=== PATIENT | female | born 1970 | race Caucasian/White ===

== ENCOUNTER → 2018-11-12 11:41 | Outpatient (CLI) | payer OTHER, SELFPAY ==
--- NOTE | 2018-11-12 | DI.MG.S_ITS ---
BILATERAL DIGITAL SCREENING MAMMOGRAM 3D/2D WITH CAD: 11/12/2018 CLINICAL: Routine screening. Comparison is made to exams dated: 02/05/2017 mammogram, 07/10/2014 mammogram, and 11/07/2011 mammogram - [facility]. The tissue of both breasts is extremely dense, which lowers the sensitivity of mammography. Current study was also evaluated with a Computer Aided Detection (CAD) system. There is a mole marker on the left breast. No significant masses, calcifications, or other findings are seen in either breast. There has been no significant interval change. IMPRESSION: NEGATIVE There is no mammographic evidence of malignancy. A 1 year screening mammogram is recommended. This exam was interpreted at Station ID: [id number]. NOTE: For mammograms, a report in lay terms will be sent to the patient. Approximately 15% of breast malignancies will not be visualized mammographically. In the management of a palpable breast mass, a negative mammogram must not discourage biopsy of a clinically suspicious lesion. Electronically Signed By: Matthew batista/kesnia:11/12/2018 17:17:56 copy to: NATALI SALGUERO letter sent: Normal Exam ACR BI-RADS Category 1: Negative [id number]
== END ==
PROVIDERS: PCP Internal Medicine; Visit Provider Internal Medicine
DX: Z12.31 Encounter for screening mammogram for malignant neoplasm of breast (principal)
CPT/HCPCS: 77063; 77067

== ENCOUNTER 2019-01-19 07:47 | Day surgery (SDC) | payer OTHER, SELFPAY ==
--- NOTE | 2019-01-19 | PATH_ITS ---
[facility] Accession Number: [id number] . 01 Material submitted: . PART A: CECAL POLYP PART B: ASCENDING COLON POLYP . 02 Diagnosis: A. Cecum, Polyp: Tubular adenoma. . B. Ascending Colon, Polyp: Tubulovillous adenoma, fragmented. Negative for high-grade dysplasia or malignancy. MRV/01/20/2019 . 02 Electronically signed: . Stefan Ignacio MD, PhD, Pathologist NPI- [id number] . 01 Gross description: . Received two formalin-filled containers, both labeled with the patient's name: . A. In a container labeled cecal polyp, the specimen consists of a 0.1 cm portion of tissue, entirely submitted in cassette A. B. In a container labeled ascending colon polyp, are multiple 0.1-0.5 cm portions of tissue, which are filtered, wrapped, and entirely submitted in cassette B. ([id number]) /FRR . 02 Pathologist provided ICD-10: D12.0, D12.2 . 02 CPT . 998415, 153397 Performed at: 01 [facility] [address] [id number] MD Devendra Ng MD Phone: [phone] Performed at: 02 [facility] [address] [place], [place] [id number] MD Raquel Harmon MD Phone: [phone]
--- NOTE | 2019-01-19 07:47 | PM.HP.1 ---
History of Present Illness Date Patient Seen: 01/19/19 Chief complaint: [id number] SCREENING COLONOSCOPY Narrative: 48-year-old female who is is here for colon cancer screening. There is a family history of colon polyps in her father. Otherwise the patient has no active GI issues Meds Home Medications Medication Instructions Recorded Confirmed Type NORETH/ETHIN/FE 11/21 - tab PO QDAY #0 12/09/12 01/19/19 History (Loestrin Fe - Tablet) trazodone 100 mg PO BEDTIME 01/19/19 01/19/19 History Allergies Allergy/AdvReac Type Severity Reaction Status Date / Time amoxicillin Allergy Mild Rash Verified 01/19/19 07:53 Exam Narrative Exam Narrative: General: Patient is well developed, not in apparent distress Cardiovascular: Regular rate and rhythm, no murmurs, rubs, or gallops; no evidence of edema; no palpable abdominal aortic aneurysm Gastrointestinal: Normoactive bowel sounds, soft, nontender, nondistended, no rebound tenderness, no hepatosplenomegaly, no evidence of hernia Assessment & Plan Assessment & Plan narrative: 48-year-old female with family history of colon polyps who is here for colon cancer screening by means of colonoscopy Regarding the procedure(s), the risks and potential complications, benefits, and alternatives (including not doing the procedure) were discussed with the patient. The risks include but are not limited to bleeding, splenic injury, infection, perforation which may require surgical intervention, missed lesions, and adverse reactions to sedative medicines. After a question and answer period, the patient agreed to proceed with the procedure(s) and gives informed consent.
[2019-01-19 08:08] VITALS: BP 117/75; PULSE 75; RESP 16; TEMP 36.8; O2SAT 98; BMI 23.9
[2019-01-19] MEDS: SODIUM CHLORIDE 0.9% 1,000 ML 70 ML IV (08:30)
[2019-01-19] MEDS: fentaNYL 250 MCG/5 ML INJ IV (09:00)
[2019-01-19] MEDS: MIDAZOLAM 5 MG/5 ML VIAL IV (09:00)
--- NOTE | 2019-01-19 09:06 | PM.OP.ENDO ---
Operative Date/Time/Diagnoses Date of procedure: 01/19/19 Procedure Notes Procedure in detail: Surgeon: Franklin Samano MD Procedure: Colonoscopy with polypectomy and tattoo Preoperative diagnosis: Colon cancer screening, family history of colon polyps Postoperative diagnosis: Cecal polyp, ascending colon polyp status post polypectomy with tattoo of ascending colon polypectomy site, grade 1 internal hemorrhoids Medications: Conscious sedation using 6 mg IV of Midazolam and 100 mcg IV of Fentanyl Preanesthesia Assessment An H and P was performed/updated and the Px?s ASA class is 1. The procedure was discussed in detail with the patient. The potential risks and complications including infection, bleeding, missed lesions, perforation, need for surgery in case of perforation, prolonged hospital stay, and were explained. A brief question and answer period was allotted and once all questions were answered, informed consent was obtained. The patient was brought back to the procedure room and placed on standard monitoring. The patient?s vital signs were monitored continuously throughout the entire procedure. Prior to starting, a timeout was performed to confirm the patient?s identity, allergies, medications, and procedure. Procedure in detail The patient was placed in left lateral decubitus position and once adequate sedation was obtained a JEANETTE was performed. The digital rectal examination did not reveal any palpable lesions. The tip of the colonoscope was placed in the anal canal and advanced without difficulty all the way to the cecum which was identified by the appendiceal orifice and the ileocecal valve. Careful examination of all carrion of the colon was performed with irrigation of any residual stool. In the cecum, there was note of a 2 mm sessile polyp which was removed by means of cold Jumbo forceps. Resection and retrieval were complete with minimal bleeding. In the ascending colon, there was note of a 10 mm semi pedunculated polyp which was removed by means of hot snare. Resection and retrieval were complete with no bleeding. 1 cc of spot ink was injected adjacent to the polypectomy site. Retroflexion was performed in the rectum which revealed grade 1 internal hemorrhoids The patient tolerated the procedure well and will be brought back to the recovery area to be discharged once criteria are met. The prep was judged to be good and adequate to identify polyps less than 5 mm. The withdrawal time was 13 min. The total physician intraservice time was 20 min. Complications There were no complications and estimated blood loss was minimal. Recommendations: Resume previous diet Continue outPx medications Follow up pathology results Repeat colonoscopy in 3 years for surveillance. This may change depending on the pathology results If you have any trouble with your hemorrhoids, feel free to call our office to make an appointment so you can be evaluated to see if you would be a good candidate for hemorrhoid banding An emergency contact number was given to the patient for any complications related to the procedure
[2019-01-19 09:32] VITALS: BP 109/66; PULSE 63; RESP 10; TEMP 36.3; O2SAT 99
--- NOTE | 2019-01-19 09:33 | PM.DS.1 ---
History of Present Illness Chief complaint: [id number] SCREENING COLONOSCOPY Narrative: 48-year-old female who is is here for colon cancer screening. There is a family history of colon polyps in her father. Otherwise the patient has no active GI issues Discharge Providers Discharge Date: 01/19/19 Primary care physician: Jh Brenner MD Discharge provider: Franklin Samano MD Exam Vital Signs (past 8 hours): - 01/19/19 08:08 Temperature 98.2 F Pulse Rate 75 Respiratory Rate 16 Blood Pressure 117/75 Pulse Oximetry 98 Oxygen Delivery Method Room Air Narrative Exam Narrative: General: Patient is well developed, not in apparent distress Cardiovascular: Regular rate and rhythm, no murmurs, rubs, or gallops; no evidence of edema; no palpable abdominal aortic aneurysm Gastrointestinal: Normoactive bowel sounds, soft, nontender, nondistended, no rebound tenderness, no hepatosplenomegaly, no evidence of hernia Discharge Plan Discharge Plan Patient Disposition: Home Discharge Med Rec/Prescriptions Prescriptions: Continued NORETH/ETHIN/FE /20 - (Loestrin Fe 1-20 Tablet) 1 tab PO QDAY Qty: 0 RF: 0 trazodone 50 mg Tablet 100 mg PO BEDTIME RF: 0 Follow up/Referrals: Jh Brenner MD [Primary Care Provider] - Discharge Orders: Discharge (Order); Ordered 01/19/19 Ordered By: Franklin Samano Provider Discharge Instructions Diet: Diet as Tolerated Visit Report/Discharge Packet Stand Alone Forms: Colonoscopy Result: [facility] Discharge Data Primary Care Provider: Jh Brenner V Attending Provider: Franklin Samano
[2019-01-19 09:37] VITALS: BP 104/63; PULSE 71; RESP 20; O2SAT 99
[2019-01-19 09:42] VITALS: BP 110/68; PULSE 69; RESP 19; O2SAT 100
[2019-01-19 09:51] VITALS: BP 115/66; PULSE 65; RESP 18; TEMP 36.6; O2SAT 100
== END 2019-01-19 10:02 | disposition home or self-care (01) ==
PROVIDERS: PCP Internal Medicine; Visit Provider Internal Medicine Gastroenterology
PROC: 0DJD8ZZ Inspection of Lower Intestinal Tract, Via Natural or Artificial Opening Endoscopic (ICD-10-PCS; CPT 45378; principal; 2019-01-19 09:00)
DX: Z12.11 Encounter for screening for malignant neoplasm of colon (principal); Z80.0 Family history of malignant neoplasm of digestive organs; D12.0 Benign neoplasm of cecum; D12.2 Benign neoplasm of ascending colon; K64.0 First degree hemorrhoids
CPT/HCPCS: 45381; 45385; 45380; J2250; J3010

== ENCOUNTER → 2019-10-19 18:27 | Outpatient (ROUT) | payer OTHER, SELFPAY ==
[2019-10-19 19:08] LABS: Cholesterol 212 mg/dL (140-199); Glucose 94 mg/dL (70-100); HDL Cholesterol 50 mg/dL (40-60); LDL Cholesterol Calculated 104 mg/dL (<100); Triglycerides 290 mg/dL (35-150)
== END ==
PROVIDERS: PCP Internal Medicine; Visit Provider Internal Medicine
DX: Z00.00 Encounter for general adult medical examination without abnormal findings (principal)
CPT/HCPCS: 80061; 82947

== ENCOUNTER 2023-05-23 09:02 | Emergency (ER) | payer OTHER, SELFPAY ==
[2023-05-23 09:09] VITALS: BP 157/102; PULSE 65; RESP 20; TEMP 36.6; O2SAT 100; BMI 25.0
[2023-05-23 09:15] VITALS: PULSE 62; O2SAT 100
[2023-05-23 09:21] VITALS: BP 176/82; PULSE 60; O2SAT 100
[2023-05-23] MEDS: MORPHINE 2 MG/ML INJ IV (09:28)
--- NOTE | 2023-05-23 09:28 | DI.CT.S_ITS ---
PROCEDURE: CT KIDNEY URETER BLADDER (KUB) INDICATIONS: right sided pain hx stones TECHNIQUE: Axial sections were acquired from the lung bases to the pubic symphysis. Coronal and sagittal reformats were performed. For radiation dose reduction, the following was used: automated exposure control, adjustment of mA and/or kV according to patient size. COMPARISON: [facility], CT, KIDNEY/ URETER/BLADDER, 01/21/2018, 15:03. FINDINGS: Image quality: Excellent. Lung bases: Lung bases are clear. Heart: No significant findings. URINARY: Right Kidney/ureter: There is an obstructing 4 mm distal right ureteral stone visualized just proximal to the right ureterovesicular junction. There is mild right hydroureteronephrosis. No significant perinephric or periureteral stranding. Left Kidney: No stones or hydronephrosis. Left Ureter: No hydroureter. Bladder: Normal wall thickness. No stones. ABDOMEN: Liver: Unremarkable. Gallbladder: Unremarkable Biliary ducts: Unremarkable. Pancreas: Unremarkable. Spleen: No splenomegaly Adrenal Glands: Unremarkable. Stomach and Bowel: Stomach, small bowel loops, and colon are unremarkable. Normal appendix Peritoneum: No abnormal intraperitoneal fluid. No free air. Ventral Wall: There is a fat-containing umbilical hernia without acute inflammation. Abdominal Nodes: No enlarged retroperitoneal or mesenteric lymph nodes. Vessels: Aorta and inferior vena cava are normal in size. PELVIS: Pelvic Organs: Unremarkable. Pelvic Nodes: Unremarkable. Miscellaneous: No inguinal hernias are seen. Bones: Visualized osseous structures appear intact without acute fracture or focal destructive lesion. No acute compression fractures of the imaged spine. IMPRESSION: Obstructing 4 mm distal right ureteral stone with associated mild right hydroureteronephrosis. Normal appendix. Dictated by: Lucio Delarosa M.D. on 05/23/2023 at 9:24 Approved by: Lucio Delarosa M.D. on 05/23/2023 at 9:28
[2023-05-23 09:30] VITALS: BP 174/92; PULSE 61; O2SAT 100
[2023-05-23 09:55] LABS: Add Manual Diff / Slide Review NO; Basophils Absolute Auto 100 /uL (0-100); Basophils Percent Auto 0.5 % (0-2); Eosinophils Absolute Auto 0 /uL (0-450); Eosinophils Percent Auto 0.2 % (2-4); Hematocrit 39.6 % (36-46); Hemoglobin 13.6 g/dL (12.0-16.0); Lymphocytes Absolute Auto 1500 /uL (1100-4500); Lymphocytes Percent Auto 12.7 % (25-40); Mean Corpuscular HGB Conc 34.5 % (30-36); Mean Corpuscular Hemoglobin 30.1 PG (26-34); Mean Corpuscular Volume 87.2 fL (80-100); Monocytes Absolute Auto 700 /uL (0-900); Monocytes Percent Auto 5.8 % (3-14); Neutrophils Absolute Auto 9500 /uL (1500-7000); Neutrophils Percent Auto 80.8 % (50-75); Platelet Count 289 X10^3/uL (150-400); Red Blood Cell Count 4.54 X10^6/uL (4.0-5.2); Red Cell Distribution Width 13.2 % (11.6-14.8); White Blood Cell Count 11.8 X10^3/uL (4.5-11.0)
--- NOTE | 2023-05-23 09:59 | ED_ITS ---
HPI - Female Genitourinary General Chief complaint: Urogenital-Female Stated complaint: Kidney Stone Time Seen by Provider: 05/23/23 09:28 Source: patient Mode of arrival: Ambulatory History of Present Illness HPI Narrative: Patient is a 52-year-old female history of kidney stones presenting today with sudden onset of right flank pain. She reports that she passed a kidney stone about 2 weeks ago but started having severe pain today. She is never had pain like this is right flank radiating to her groin. She would difficulty urinatin g. She has some nausea. No fever or chills. She took ibuprofen prior to arrival it has not helped yet. She is been given morphine and Dilaudid prior to my examination is much more comfortable. Related Data Home Medications Medication Instructions Recorded Confirmed NORETH/ETHIN/FE 11/21 - 1 tab PO QDAY ##0 12/09/12 01/19/19 (Loestrin Fe 1-20 Tablet) trazodone 50 mg tablet 100 mg PO BEDTIME 01/19/19 01/19/19 Previous Rx's Medication Instructions Recorded hydrocodone 5 mg-acetaminophen 325 1 tab PO Q6H PRN pain #10 tabs 05/23/23 mg tablet ondansetron 4 mg disintegrating 4 mg PO Q8H PRN nausea and 05/23/23 tablet vomiting #10 tabs Allergies Allergy/AdvReac Type Severity Reaction Status Date / Time amoxicillin Allergy Mild Rash Verified 01/19/19 07:53 Review of Systems Review of Systems ROS Unobtainable: All systems reviewed & are unremarkable except as noted in HPI and below Patient History alcohol intake frequency: a few times a week Substance Use Type: does not use Exam Initial Vital Signs Initial Vital Signs: Vital Signs Temperature 97.8 F 05/23/23 09:09 Pulse Rate 65 05/23/23 09:09 Respiratory Rate 20 05/23/23 09:09 Blood Pressure 157/102 H 05/23/23 09:09 Pulse Oximetry 100 05/23/23 09:09 Oxygen Delivery Method Room Air 05/23/23 09:09 GENERAL: Alert pleasant well-appearing 52-year-old female and in no acute distress. HEENT: Head atraumatic,EOMI, pupils reactive, face symmetric, moist mucous membranes CARDIOVASCULAR: Regular rate and rhythm without murmurs, rubs or gallops. RESPIRATORY: Breath sounds equal bilaterally, no wheezes rales or rhonchi. ABDOMEN: Soft, minimal right lower quadrant pain no guarding no rebound negative Allen's sign : Mild right CVA tenderness EXTREMITIES: Normal range of motion, no clubbing or edema. Neurovascularly intact NEUROLOGICAL: Alert and oriented x4. SKIN: Warm, dry, no laceration, no petechiae, no rashes or lesions. Course Orders Ordered: ED Orders 05/23/23 09:25 Urinalysis and Microscopic Stat 05/23/23 09:28 CT kidney ureter bladder (KUB) Stat 05/23/23 09:40 CBC Auto Diff [Complete Blood Count AUTO DIFF] Stat CMP [Comprehensive Metabolic Panel] Stat Discontinued Medications Hydromorphone HCl (Hydromorphone 0.5 Mg Inj) 0.5 mg IV NOW ONE Stop: 05/23/23 10:02 Last Admin: 05/23/23 10:05 Dose: 0.5 mg Documented By: BRENDA Morphine Sulfate (Morphine 2 Mg/Ml Inj) 2 mg IV NOW ONE Stop: 05/23/23 09:22 Last Admin: 05/23/23 09:28 Dose: 2 mg Documented By: BRENDA Ondansetron HCl (Ondansetron 4 Mg/2 Ml Inj) 4 mg IV NOW ONE Stop: 05/23/23 09:30 Last Admin: 05/23/23 10:05 Dose: 4 mg Documented By: BRENDA Vital Signs Vital signs: Vital Signs - 8 hr 05/23/23 09:09 05/23/23 09:15 05/23/23 09:21 Temperature 97.8 F Pulse Rate 65 62 60 Respiratory Rate 20 Blood Pressure 157/102 H Pulse Oximetry 100 100 100 Oxygen Delivery Method Room Air 05/23/23 09:21 05/23/23 09:30 05/23/23 09:30 Temperature Pulse Rate 61 Respiratory Rate Blood Pressure 176/82 H 174/92 H Pulse Oximetry 100 Oxygen Delivery Method 05/23/23 10:34 05/23/23 11:49 Temperature Pulse Rate 77 77 Respiratory Rate 18 18 Blood Pressure Pulse Oximetry 100 99 Oxygen Delivery Method Room Air MDM - Female Genitourinary Lab Data 05/23/23 09:40 05/23/23 09:40 Labs: Lab Results 05/23/23 05/23/23 05/23/23 Range/Units 09:25 09:40 09:40 WBC 11.8 H (4.5-11.0) X10^3/uL RBC 4.54 (4.0-5.2) X10^6/uL Hgb 13.6 (12.0-16.0) g/dL Hct 39.6 (36-46) % MCV 87.2 (80-100) fL MCH 30.1 (26-34) PG MCHC 34.5 (30-36) % RDW 13.2 (11.6-14.8) % Plt Count 289 (150-400) X10^3/uL Neut % (Auto) 80.8 H (50-75) % Lymph % (Auto) 12.7 L (25-40) % [place] % (Auto) 5.8 (3-14) % Eos % (Auto) 0.2 L (2-4) % Baso % (Auto) 0.5 (0-2) % Neut # (Auto) 9500 H (6614-8009) /uL Lymph # (Auto) 1500 (4566-3190) /uL [place] # (Auto) 700 (0-900) /uL Eos # (Auto) 0 (0-450) /uL Baso # (Auto) 100 (0-100) /uL Sodium 133 L (137-145) mmol/L Potassium 4.1 (3.4-5.1) mmol/L Chloride 99 (98-107) mmol/L Carbon Dioxide 28 (22-32) mmol/L BUN 16 (7-17) mg/dL Creatinine 0.66 (0.52-1.04) mg/dL Estimated GFR > 60 (>60) mL/min BUN/Creatinine Ratio 24.2 H (6-22) Glucose 107 H (70-100) mg/dL Calcium 9.1 (8.4-10.2) mg/dL Total Bilirubin 0.5 (0.2-1.3) mg/dL AST 25 (14-36) IU/L ALT 21 (<35) IU/L Alkaline Phosphatase 90 (38-126) U/L Total Protein 6.8 (6.3-8.2) g/dL Albumin 4.2 (3.5-5.0) g/dL Globulin 2.6 (1.7-4.1) g/dL Albumin/Globulin Ratio 1.6 (1.0-2.8) Urine Color Yellow Urine Appearance Cloudy Urine pH 7.5 (4.5-8.0) Ur Specific [place] 1.020 (1.000-1.035) Urine Protein Negative (Negative) Urine Glucose (UA) Negative (Negative) g/dL Urine Ketones Negative (NEGATIVE) Urine Occult Blood 1+ H (Negative) Urine Nitrate Negative (Negative) Urine Bilirubin Negative (NEGATIVE) Urine Urobilinogen 0.2 (0.2) E.U./dL Ur Leukocyte Esterase Negative (NEGATIVE) Urine RBC 1-5/hpf (0-5/HPF) Urine WBC 0-1/hpf (0-5/HPF) Ur Squamous Epith Cells 0-1 /hpf (0-5/HPF) Amorphous Sediment 3+ Urine Bacteria Occasional (0-1) (None) Ur Culture Indicated? Cult not indicated Urine Dip Bedside Urine Glucose Negative Bedside Urine Bilirubin - Negative Bedside Urine Ketone - Negative Urine Specific [place] 1.010 Bedside Urine Occult Blood ++ Bedside Urine pH 7.5 Bedside Urine Protein - Negative Bedside Urine Urobilinogen - Negative Bedside Urine Nitrite - Negative Bedside Urine Leukocytes - Negative Esterase Imaging Data CT scan - abdomen/pelvis: Radiologist's Impression: PROCEDURE:? CT KIDNEY URETER BLADDER (KUB) ? INDICATIONS:? right sided pain hx stones ? TECHNIQUE:? Axial sections were acquired from the lung bases to the pubic symphysis.? Coronal and sagittal reformats were performed.? For radiation dose reduction, the following was used: ?automated exposure control, adjustment of mA and/or kV according to patient size.? ? COMPARISON:? [facility], CT, KIDNEY/ URETER/BLADDER, 01/21/2018, 15:03. ? FINDINGS:? Image quality:? Excellent.? ? Lung bases:? Lung bases are clear. Heart:? No significant findings. ? URINARY: Right Kidney/ureter:? There is an obstructing 4 mm distal right ureteral stone visualized just proximal to the right ureterovesicular junction.? There is mild right hydroureteronephrosis.? No significant perinephric or periureteral stranding. ? Left Kidney: ? No stones or hydronephrosis. Left Ureter:? No hydroureter.? ? Bladder:? Normal wall thickness. No stones. ? ? ? ABDOMEN: Liver:? Unremarkable.? ? Gallbladder:? Unremarkable? ? Biliary ducts:? Unremarkable.? ? Pancreas:? Unremarkable.? ? Spleen:? No splenomegaly Adrenal Glands:? Unremarkable.? ? ? Stomach and Bowel:? Stomach, small bowel loops, and colon are unremarkable.? No rmal appendix Peritoneum:? No abnormal intraperitoneal fluid.? No free air.? ? Ventral Wall: There is a fat-containing umbilical hernia without acute inflammation. Abdominal Nodes:? No enlarged retroperitoneal or mesenteric lymph nodes.? Vessels:? Aorta and inferior vena cava are normal in size.? ? PELVIS: Pelvic Organs:? Unremarkable.? ? Pelvic Nodes: Unremarkable. Miscellaneous: No inguinal hernias are seen. ? ? ? Bones: Visualized osseous structures appear intact without acute fracture or foc al destructive lesion. No acute compression fractures of the imaged spine. ? IMPRESSION:? ? Obstructing 4 mm distal right ureteral stone with associated mild right hydroureteronephrosis. ? Normal appendix. ? Dictated by: Lucio Delarosa M.D. on 05/23/2023 at 9:24 ? ? Approved by: Lucio Delarosa M.D. on 05/23/2023 at 9:28 ? MDM Narrative Medical decision making narrative: Patient 52-year-old female presents today with right flank pain,. She is history of kidney stone presenting today similar to kidney stone. She is confirmed by CT to have a 4 mm stone with hydronephrosis. No evidence of SKYLER I or UTI. Pain is much better controlled after Dilaudid rather than morphine. Discussion with her about how she should have referral to Urology she is had 2 stones in the last 2 weeks. No further stones are seen today on CT. Discharge Plan Departure Patient Disposition: Home Clinical Impression: Kidney stones Instructions: DI for Kidney Stones Activity Restrictions/Additional Instructions: *You have been diagnosed with right-sided kidney stone *What to do: At this time continue to hydrate. I suspect that you pass a stone within the next 72 hours. *Continue to take medications as directed Motrin 600 mg every 6 hours if needed for [id number] pain [place] 1 tablet every 6 hours if needed for severe Zofran 4 mg every 8 hours if needed for nausea vomiting *Follow up with your primary care provider in 2-3 days or call [phone] Call [place] or your PCP for referral to Urology *Return to ER if you should have increasing pain, fever, persistent vomiting or any new, worsening or concerning symptoms CONTROLLED SUBSTANCE DISCHARGE (Narcotoic/benzodiazepine/Flexeril/Phenergan) 1. You have been prescribed narcotic medications, it does have acetaminophen/Tylenol/paracetamol in it, DO NOT TAKE MORE THAN 4,00mg in 24 hours of Tylenol. TRAMADOL DOES NOT CONTAIN TYLENOL 2. Please understand that we cannot provide further refills of narcotics, benzodiazepines or controlled substances through the ED and her pain management will need to be through your provider. 3. While on these medications you cannot drive or operate heavy machinery. 4. You cannot sign legal documents or perform any duties such as this. 5. As long as you're taking opiate pain medications he should also be taking a stool softener such as Colace, Dulcolax, MiraLAX or prune juice, to help avoid constipation. Prescriptions: New hydrocodone-acetaminophen 5-325 mg tablet 1 tab PO Q6H PRN (Reason: pain) Qty: 10 0RF ondansetron 4 mg tablet,disintegrating 4 mg PO Q8H PRN (Reason: nausea and vomiting) Qty: 10 0RF No Action NORETH/ETHIN/FE 1/20 - (Loestrin Fe 1-20 Tablet) 1 tab PO QDAY Qty: 0 trazodone 50 mg Tablet 100 mg PO BEDTIME Referrals: Lauren Eng MD [Primary Care Provider] - Matteo Harry MD [Physician] - Stand Alone Forms: Patient Portal/API
[2023-05-23] MEDS: HYDROMORPHONE 0.5 MG INJ IV (10:05)
[2023-05-23] MEDS: ONDANSETRON 4 MG/2 ML INJ IV (10:05)
[2023-05-23 10:08] LABS: Alanine Aminotransferase 21 IU/L (<35); Albumin 4.2 g/dL (3.5-5.0); Albumin Globulin Ratio 1.6 (1.0-2.8); Alkaline Phosphatase 90 U/L (38-126); Aspartate Aminotransferase 25 IU/L (14-36); BUN Creatinine Ratio 24.2 (6-22); Bilirubin Total 0.5 mg/dL (0.2-1.3); Blood Urea Nitrogen 16 mg/dL (7-17); Calcium 9.1 mg/dL (8.4-10.2); Carbon Dioxide 28 mmol/L (22-32); Chloride 99 mmol/L (98-107); Estimated Glomerular Filt Rate > 60 mL/min (>60); Globulin 2.6 g/dL (1.7-4.1); Glucose 107 mg/dL (70-100); HEMOLYSIS < 15 (0-50); Potassium 4.1 mmol/L (3.4-5.1); Sodium 133 mmol/L (137-145); Total Protein 6.8 g/dL (6.3-8.2)
[2023-05-23 10:34] VITALS: PULSE 77; RESP 18; O2SAT 100
[2023-05-23 10:58] LABS: Appearance Urine UA CLOUDY; Bilirubin Urine UA NEGATIVE (NEGATIVE); Color Urine UA YELLOW; Glucose Urine UA NEGATIVE (Negative); Ketones Urine UA NEGATIVE (NEGATIVE); Leukocyte Esterase Urine UA NEGATIVE (NEGATIVE); Nitrite Urine UA NEGATIVE (Negative); Occult Blood Urine UA 1+ (Negative); Protein Urine UA NEGATIVE (Negative); Urobilinogen Urine UA 0.2 E.U./dL (0.2)
[2023-05-23 11:06] LABS: Bacteria Urine Occasional (0-1); RBC Urine 1-5/HPF (0-5/HPF); Squamous Epithelial Cell Urine 0-1 /HPF (0-5/HPF); WBC Urine 0-1/HPF (0-5/HPF); pH Urine UA 7.5 (4.5-8.0)
[2023-05-23 11:07] LABS: Amorphous Sediment Urine 3+; Culture Indicated Urine Cult Not Indicated
[2023-05-23 11:49] VITALS: PULSE 77; RESP 18; O2SAT 99
== END 2023-05-23 11:59 | disposition home or self-care (01) ==
PROVIDERS: Emergency Provider Emergency Medicine; PCP Family Medicine
DX: N20.0 Calculus of kidney (principal); R30.0 Dysuria; Z87.442 Personal history of urinary calculi
CPT/HCPCS: 51798; 74176; 80053; 81001; 81003; 85025; 96374; 96375; 99283; 99284; J1170; J2270; J2405

== ENCOUNTER 2023-06-02 06:58 | Day surgery (SDC) | payer OTHER, SELFPAY ==
[2023-06-02 07:10] VITALS: BP 130/80; PULSE 78; RESP 16; TEMP 35.7; O2SAT 98; BMI 23.3
[2023-06-02] MEDS: LACTATED RINGERS 1,000 ML 200 ML IV (07:19)
--- NOTE | 2023-06-02 07:44 | PM.HP.1 ---
History of Present Illness History of Present Illness Date Patient Seen: 06/02/23 Chief complaint: Screening Colonoscopy Narrative: 52-year-old woman here for screening colonoscopy. Last colonoscopy 2019 significant for benign polyps. No family history of intestinal malignancy. No abdominal pain nausea vomiting blood per rectum unintentional weight loss. [facility] Social History household members: spouse Smoking Status: Never smoker Meds Home Medications and Allergies Home Medications Medication Instructions Recorded Confirmed Type NORETH/ETHIN/FE 11/21 - 1 tab PO QDAY ##0 12/09/12 01/19/19 History (Loestrin Fe 1-20 Tablet) trazodone 50 mg tablet 100 mg PO BEDTIME 01/19/19 06/02/23 History hydrocodone 5 mg-acetaminophen 325 1 tab PO Q6H PRN pain #10 tabs 05/23/23 Rx mg tablet ondansetron 4 mg disintegrating 4 mg PO Q8H PRN nausea and 05/23/23 Rx tablet vomiting #10 tabs Allergies Allergy/AdvReac Type Severity Reaction Status Date / Time amoxicillin Allergy Mild Rash Verified 06/02/23 07:06 Exam Vital Signs (past 8 hours): - 06/02/23 07:10 Temperature 96.3 F L Pulse Rate 78 Respiratory Rate 16 Blood Pressure 130/80 Pulse Oximetry 98 Oxygen Delivery Method Room Air Oxygen Delivery Method Room Air Narrative Exam Narrative: General adult woman alert oriented no acute distress Chest nonlabored respirations Extremities warm well perfused Assessment & Plan Assessment and plan (1) Personal history of colonic polyps: Status: Acute Assessment & Plan narrative: The patient requires colorectal screening and colonoscopy is recommended. Technical details were discussed. Risks, benefits, alternatives explained. Risks including but not limited to myocardial infarction, aspiration, bleeding, pain, missed lesion, incomplete examination, need for further radiographic studies, colonic perforation, and need for major abdominal surgery were discussed. All questions were answered to their satisfaction, and they are in agreement with this plan.
--- NOTE | 2023-06-02 07:46 | PM.OP.COLON ---
Operative Date/Time/Diagnoses Date of procedure: 06/02/23 Time of procedure: 07:46 Pre-op diagnosis: Personal history of colonic polyps Procedure & Clinicians Study performed: Colonoscopy Same procedure as scheduled: Yes Indications: Personal history of colonic polyps, colorectal screening Surgeon: Todd Levy Procedure Notes Procedure in detail: The history and physical was performed/updated and the patient is ASA class is 2 The procedure was discussed in detail with the patient. Potential risks complications including infection, bleeding, missed diagnosis, perforation, need for surgery, and were explained. Their questions were answered and informed consent was obtained. Patient was brought to the procedure room and placed standard monitoring equipment. The patient's vital signs were monitored continuously throughout the entire procedure. Prior to starting time-out was performed. The patient was placed in the left lateral recumbent position. Procedural sedation was administered by anesthesia. Examination began with a thorough inspection of the perianal area there was no evidence of fissures, fistulae, external hemorrhoids or cutaneous malignancy. The colonoscopy scope was then placed into the anal canal and was advanced to the cecum, which was identified by the ileocecal valve, the appendiceal orifice and the confluence of the taenia. The scope was then slowly withdrawn examining colon thoroughly in all directions, irrigating it of any residual stool. No masses or polyps. Previously inked proximal colon noted. Grade 1 internal hemorrhoids on retroflexion. The patient tolerated the procedure well. They will be discharged once criteria are met. The prep was of good/excellent quality. The withdrawl time was 7 minutes. Impression: Normal colonoscopy Post-procedure Recommendations: Colonoscopy in 5 years Disposition: same day surgery
[2023-06-02 08:12] VITALS: BP 115/66; PULSE 66; RESP 16; TEMP 36.4; O2SAT 98
[2023-06-02 08:23] VITALS: BP 115/66; PULSE 74; RESP 16; O2SAT 98
[2023-06-02 08:27] VITALS: BP 115/68; PULSE 65; RESP 16; TEMP 36.3; O2SAT 98
[2023-06-02 08:36] VITALS: BP 122/72; PULSE 77; RESP 16; TEMP 36.2; O2SAT 98
== END 2023-06-02 08:40 | disposition home or self-care (01) ==
PROVIDERS: PCP Family Medicine; Referring Provider Surgery; Visit Provider Surgery
PROC: 0DJD8ZZ Inspection of Lower Intestinal Tract, Via Natural or Artificial Opening Endoscopic (ICD-10-PCS; CPT 45378; principal; 2023-06-02 07:45)
DX: Z12.11 Encounter for screening for malignant neoplasm of colon (principal); Z86.010 Personal history of colon polyps; K64.0 First degree hemorrhoids
CPT/HCPCS: 45378; J2704

== ENCOUNTER → 2023-07-10 07:55 | Outpatient (CLI) | payer OTHER, SELFPAY ==
--- NOTE | 2023-07-10 | DI.CT.S_ITS ---
PROCEDURE: CT KIDNEY URETER BLADDER (KUB) INDICATIONS: CALCULUS OF URETER TECHNIQUE: Axial sections were acquired from the lung bases to the pubic symphysis. Coronal and sagittal reformats were performed. For radiation dose reduction, the following was used: automated exposure control, adjustment of mA and/or kV according to patient size. COMPARISON: [facility], CT, CT KIDNEY URETER BLADDER (KUB), 05/23/2023, 9:53. FINDINGS: Image quality: Excellent. Lung bases: Unremarkable. Heart: No significant findings. URINARY: Right Kidney: Right hydronephrosis is essentially resolved. Right Ureter: No hydroureter. The previously seen obstructing calculus at the right UVJ has passed into the bladder. The stone remains near the ureteral orifice. The stone measures 0.4 cm, (2/76). Left Kidney: No stones or hydronephrosis. Left Ureter: No hydroureter. Bladder: Single stone in the right urinary bladder measuring 0.4 cm. ABDOMEN: Liver: Small hepatic cysts. Gallbladder: Not distended. Biliary ducts: Unremarkable. Pancreas: Unremarkable. Spleen: Unremarkable. Adrenal Glands: Unremarkable. Stomach and Bowel: Stomach, small bowel loops, and colon are unremarkable. Normal appendix. Peritoneum: No abnormal intraperitoneal fluid. No free air. Ventral Wall: No hernia. Abdominal Nodes: No enlarged retroperitoneal or mesenteric lymph nodes. Vessels: Aorta and inferior vena cava are normal in size. PELVIS: Pelvic Organs: Anteverted uterus. Pelvic Nodes: Unremarkable. Miscellaneous: No inguinal hernias are seen. Bones: No suspicious lesion. IMPRESSION: 1. Distal right ureteral stone measuring 0.4 cm is passing or past into the urinary bladder. Essentially resolved right hydronephrosis. 2. No additional kidney stones. Dictated by: Tim Pickett M.D. on 07/10/2023 at 9:30 Approved by: Tim Pickett M.D. on 07/10/2023 at 9:37
== END ==
PROVIDERS: PCP Family Medicine; Referring Provider Nurse Practitioner; Visit Provider Nurse Practitioner
DX: N20.1 Calculus of ureter (principal); K76.89 Other specified diseases of liver
CPT/HCPCS: 74176